=== PATIENT | female | born 1965 | race Caucasian/White ===

== ENCOUNTER → 2024-03-29 15:36 | Outpatient (REF) | payer OTHER, SELFPAY | LOC: RAD 15:36 | PROVIDERS: ATTENDING PHYSICIAN Internal Medicine Endocrinology, Diabetes & Metabolism; FAMILY PHYSICIAN Internal Medicine | DX: Z85.850 Personal history of malignant neoplasm of thyroid (principal) | CPT/HCPCS: 76536 ==

== ENCOUNTER → 2024-08-06 11:44 | Outpatient (REF) | payer OTHER, SELFPAY | LOC: HWRAD 11:44 | PROVIDERS: ATTENDING PHYSICIAN Internal Medicine | DX: Z91.81 History of falling (principal) | CPT/HCPCS: 72050; 73660 ==

== ENCOUNTER 2024-09-14 20:07 | Emergency (ER) | payer OTHER, SELFPAY ==
[2024-09-14] VITALS (8 sets, daily range): BP systolic 101–125; BP diastolic 59–74; BMI 24.4
--- NOTE | 2024-09-14 20:29 | ED.GENMED ---
History of Present Illness
<Kelly Oro PA-C - Last Filed: 09/14/24 22:36>
General
Chief Complaint: Heart Rate Problem
Source: patient
Time Seen by Provider: 09/14/24 20:20
History of Present Illness
History of Present Illness:
59yoF with a history of hypothyroidism and remote history of breast cancer currently in remission on anastrozole presenting with her for evaluation of palpitations. Patient was sitting down approximately 2 hours ago when she started to feel
like her heart was racing. She checked her pulse which was fast and irregular. Her Apple Watch indicated that her heart rate was in the 140-150s. She reports a tightness sensation in the back of her neck. She also feels lightheaded but denies
any syncope. She went to the bathroom prior to arrival and started to feel like her bilateral arms were heavy. Patient has a prior history of tachycardia when she was undergoing chemotherapy. She was temporarily on a beta-zay. She denies any
prior history of atrial fibrillation. No alcohol or caffeine use today.
Past History
<Kelly Oro PA-C - Last Filed: 09/14/24 22:36>
Past History
ED Past Medical History: Cancer (Breast)
ED Past Surgical History: Other (Partial thyroidectomy, B/L mastectomy)
Social History
Tobacco: Non-smoker
Alcohol: None
Drug: None
Personal:
Living: with family
Employment: Employed
Family History
Family History: Other (Noncontributory )
Phy Exam
<Kelly Oro PA-C - Last Filed: 09/14/24 22:36>
General Physical Exam
General Presentation: well appearing
General age: appears stated age
General Skin: warm and dry
General Habitus: normal
General Mental: alert
ENT Exam
ENT Exam: normocephalic
Cardiovascular Exam
Cardiovascular Exam: normal peripheral pulses (2+ radial pulses), irregularly irregular and tachycardia
Pulmonary Exam
Pulmonary Exam: lungs clear, no respiratory distress, no crackles and no wheezing
Neurological Exam
Neurological Exam: alert
[place]bs Coma Scale
Eye Opening: Spontaneous
Verbal Response: Oriented
Motor Response: Obeys Commands
GCS Total Score: 15
Skin Exam
Skin Exam: normal color and warm/dry
Psychiatric Exam
Psychiatric Exam: normal mood/affect
<Chayo Pena DO - Last Filed: 09/14/24 22:12>
Grubbs Coma Scale
GCS Total Score: 15
Course
<Kelly Oro PA-C - Last Filed: 09/14/24 22:36>
Orders/Labs/Results
Orders:
Orders
09/14/24 20:08
ECG [Electrocardiogram (*1)] Urgent
Reason for Study: Tachycardia
EKG- Treatment ONCE
09/14/24 20:28
0.9% Sodium Chloride 1000 ml [Nss] 1,000 ml IV BOLUS
Diltiazem HCl [Cardizem] 10 mg IV NOW STA
09/14/24 20:34
Complete Blood Count/With Diff Urgent
Comprehensive Metabolic Panel Urgent
Magnesium Urgent
TSH Reflex To Free T4 Urgent
Troponin I Urgent
09/14/24 21:00
Diltiazem 125 mg/125 ml Nss [Cardizem] 125 mg in 125 ml IV PER PROTOCOL
Initial dose in mg/hr, then titrate:: 2.5
Titrate to keep:: Heart rate 80-100 bpm
Titrate by mg/hr:: 5 mg/hr
Frequency of titrations (minutes):: 15
Maximum dose in mg/hr:: 15
09/14/24 21:01
Electrocardiogram (*1) Urgent
Reason for Study: Palpitations
EKG- Treatment ONCE
09/14/24 22:01
Electrocardiogram (*1) Urgent
Reason for Study: Palpitations
EKG- Treatment ONCE
Abnormal Lab Results
09/14/24
20:34
MPV 11.2 H fL
(7.4-10.4)
Absolute Monos (auto) 0.8 H 10^3/uL
(0.1-0.6)
BUN 19 H mg/dl
(7-17)
Glucose 110 H mg/dl
(70-99)
AST 62 H U/L
(14-36)
ALT 42 H U/L
(0-35)
09/14/24 20:34
09/14/24 20:34
Vital Signs
Initial and Last Documented VS:
Initial Vital Signs
Temp Pulse Resp BP Pulse Ox
97.8 F 148 26 124/65 98
09/14/24 20:11 09/14/24 20:11 09/14/24 20:11 09/14/24 20:11 09/14/24 20:11
Last Documented Vital Signs
Temp Pulse Resp BP Pulse Ox
97.8 F 74 13 107/72 99
09/14/24 20:11 09/14/24 22:00 09/14/24 22:00 09/14/24 22:00 09/14/24 22:00
<Chayo Pena, DO - Last Filed: 09/14/24 22:12>
Orders/Labs/Results
Orders:
Orders
09/14/24 20:08
ECG [Electrocardiogram (*1)] Urgent
Reason for Study: Tachycardia
EKG- Treatment ONCE
09/14/24 20:28
0.9% Sodium Chloride 1000 ml [Nss] 1,000 ml IV BOLUS
Diltiazem HCl [Cardizem] 10 mg IV NOW STA
09/14/24 20:34
Complete Blood Count/With Diff Urgent
Comprehensive Metabolic Panel Urgent
Magnesium Urgent
TSH Reflex To Free T4 Urgent
Troponin I Urgent
09/14/24 21:00
Diltiazem 125 mg/125 ml Nss [Cardizem] 125 mg in 125 ml IV PER PROTOCOL
Initial dose in mg/hr, then titrate:: 2.5
Titrate to keep:: Heart rate 80-100 bpm
Titrate by mg/hr:: 5 mg/hr
Frequency of titrations (minutes):: 15
Maximum dose in mg/hr:: 15
09/14/24 21:01
Electrocardiogram (*1) Urgent
Reason for Study: Palpitations
EKG- Treatment ONCE
09/14/24 22:01
Electrocardiogram (*1) Urgent
Reason for Study: Palpitations
EKG- Treatment ONCE
Abnormal Lab Results
09/14/24
20:34
MPV 11.2 H fL
(7.4-10.4)
Absolute Monos (auto) 0.8 H 10^3/uL
(0.1-0.6)
BUN 19 H mg/dl
(7-17)
Glucose 110 H mg/dl
(70-99)
AST 62 H U/L
(14-36)
ALT 42 H U/L
(0-35)
09/14/24 20:34
09/14/24 20:34
Vital Signs
Initial and Last Documented VS:
Initial Vital Signs
Temp Pulse Resp BP Pulse Ox
97.8 F 148 26 124/65 98
09/14/24 20:11 09/14/24 20:11 09/14/24 20:11 09/14/24 20:11 09/14/24 20:11
Last Documented Vital Signs
Temp Pulse Resp BP Pulse Ox
97.8 F 74 13 107/72 99
09/14/24 20:11 09/14/24 22:00 09/14/24 22:00 09/14/24 22:00 09/14/24 22:00
<Kelly Oro PA-C - Last Filed: 09/14/24 22:36>
MDM/Problems Addressed
Differential Diagnosis Includes:
59yoF here with palpitations x 2 hours. Associated with lightheadedness, tightness in the back of the neck, and arm heaviness. Heart rate 148 in triage. BP 124/65. She is appears uncomfortable but is non-toxic. Differential diagnosis includes but is
not limited to: atrial fibrillation, SVT, electrolyte abnormality, thyroid dysfunction, ACS
Initial ED plan: EKG obtained in triage shows afib with RVR with nonspecific ST/T wave changes that are likely rate related. No prior history of afib. Check cardiac labs, TSH, and magnesium. 10mg Cardizem and fluid bolus ordered.
<Kelly Oro PA-C - Last Filed: 09/14/24 22:36>
*EKG
Interpreted by ED Provider?: Yes
EKG Intrepretation Date: 09/14/24
Heart Rate: 141
Rate: tachycardiac
Rhythm: a-fib
[place]: normal axis
Interval: normal interval
QRS Pattern: normal QRS
Ischemia: non-specific ST changes
*Critical Care Note
Total Time (30-74mins, 75-104mins- exclusive of procedures): 35
<Kelly Oro PA-C - Last Filed: 09/14/24 22:36>
Update Note
Update Note:
Labs overall unremarkable including normal electrolytes and TSH. Troponin WNL. Patient was initiated on a Cardizem gtt and was on the infusion for about an hour when she converted to NSR. Repeat EKG confirms NSR with a HR of 72. No ectopy or
ischemic changes noted. Symptoms have completely resolved on reassessment. She is stable for discharge. [id number] score is 1 for gender. No indication for anticoagulation at this time. Advised close f/u with cardiology. Strict ED return precautions
discussed. She expressed understanding and was discharged in stable condition.
ED Attending Note
<Kelly Oro PA-C - Last Filed: 09/14/24 22:36>
-
Portions of this chart may have been created with voice recognition software.� Occasional wrong word or��sound alike� substitutions may have occurred due to the inherent limitations of voice recognition software.
<Chayo Pena DO - Last Filed: 09/14/24 22:12>
ED Attending Note
Patient seen and examined by attending physician: Yes
I performed a history and physical exam of patient and discussed management with resident, I reviewed resident's note and agree with documented findings and plan of care.: Yes
ED Attending Note:
This is a 59-year-old woman with prior history of breast cancer, Hypothyroidism who presents with sudden onset of palpitations that began around 6:30 PM associated with mild lightheadedness but no chest pain, no shortness of breath. No history of
similar episodes in the past. She does have remote history of palpitations which occurred during chemotherapy during breast cancer treatment. Had been on brief course of beta-zay at that time.
Initial EKG shows atrial fibrillation with RVR.
59-year-old woman appears her stated age, bright and alert, pleasant, appears in no acute distress.
Heart: Irregularly irregular at a rate of 100-110.
Respirations are easy and nonlabored.
Skin is warm and dry, normal color. Well-perfused.
A-fib ventricular response has improved with IV Cardizem.
BP mildly soft with IV Cardizem but she reports complete resolution of palpitations as well as lightheadedness.
Labs are unremarkable including normal TSH.
We had considered electrical cardioversion but patient has spontaneously converted to normal sinus rhythm.
Repeat EKG shows normal sinus rhythm, normal axis, normal intervals, no acute ST-T wave abnormalities.
[id number] score of 1. No indication for anticoagulation.
Will discharge to home with referral to cardiology for follow-up.
Discharge Plan
Departure
Patient Disposition: Home (Routine Discharge)
Date of Disposition: 09/14/24
Time of Disposition: 22:07
Patient with high blood pressure during this ER visit?: No
Discharge Problem:
Atrial fibrillation with rapid ventricular response
Instructions: Atrial Fibrillation (DC)
Prescriptions:
No Action
multivitamin with folic acid [Tab-A-Dionicio] 1 TABLET tablet
1 tab PO DAILY
Referrals:
Magaly Bryan DO [Family Provider] -
Maicol Pyle MD [Active] -
Activity Restrictions/Additional Instructions:
Please call on Monday morning to schedule a follow-up with cardiology. Return to the ER with any recurrent episodes or worsening symptoms.
Interventions
Interventions:
*Risk Screen - Suicide Last Done: 09/14/24 20:11
*General Assessment Last Done: 09/14/24 20:25
*Neglect/Abuse Screening Last Done: 09/14/24 20:11
ED- Fall Risk Assessment Last Done: 09/14/24 21:17
*ED COVID-19 Vaccine History Last Done: 09/14/24 20:25
*Nursing Disposition Last Done: 09/14/24 22:19
ED- Cardiac Assessment Last Done: 09/14/24 20:24
ED- Pulmonary Assessment Last Done: 09/14/24 20:25
Discharge Date and Time
Discharge Date/Time: 09/14/24 22:21
Print Language: AMHARIC
[2024-09-14] MEDS: NSS 1000 IV (20:36)
[2024-09-14] MEDS: CARDIZEM 10 MG IV (20:45)
[2024-09-14 20:51] LABS: % Basophils 0.8 % (0-2); % Eosinophils 2.8 % (0-6); % Immature Granulocytes 0.4 % (0-0.5); % Lymphocytes 32.7 % (20.5-51.1); % Monocytes 7.6 % (1.7-9.3); % Neutrophils 55.7 % (42.2-75.2); Absolute Basophils 0.1 10^3/uL (0-0.2); Absolute Eosinophils 0.3 10^3/uL (0-0.7); Absolute Lymphocytes 3.2 10^3/uL (1.2-3.4); Absolute Monocytes 0.8 10^3/uL (0.1-0.6); Absolute Neutrophils 5.5 10^3/uL (1.4-6.5); Hematocrit 41.8 % (37.0-47.0); Hemoglobin 14.9 g/dL (12.0-16.0); Mean Corp Hgb Conc. 35.6 g/dL (33.0-37.0); Mean Corpuscular Hgb 30.3 pg (27.0-31.0); Mean Corpuscular Volume 85.1 fL (81.0-99.0); Mean Platelet Volume 11.2 fL (7.4-10.4); Nucleated Red Blood Cells % 0 %; Platelet Count 172 10^3/uL (130-400); Red Blood Cell Count 4.91 10^6/uL (4.20-5.40); Red Cell Dist. Width 12.4 % (11.5-14.5); White Blood Cell Count 9.9 10^3/uL (4.8-10.8)
[2024-09-14] MEDS: CARDIZEM 125 IV (21:04)
[2024-09-14 21:06] LABS: ALT (SGPT) 42 U/L (0-35); AST (SGOT) 62 U/L (14-36); Albumin 4.8 g/dl (3.5-5.0); Alkaline Phosphatase 98 U/L (38-126); Blood Urea Nitrogen 19 mg/dl (7-17); Calcium 9.9 mg/dl (8.4-10.2); Carbon Dioxide 22 mmol/L (22-30); Chloride 106 mmol/L (98-107); Estimated Creatinine Clearance 72 ml/min; Glucose 110 mg/dl (70-99); Potassium 4.1 mmol/L (3.5-5.1); Sodium 141 mmol/L (135-145); Total Bilirubin 0.3 mg/dl (0.2-1.3); Total Protein 7.7 g/dl (6.3-8.2); eGFR > 60.00
[2024-09-14 21:18] LABS: Troponin I < 0.012 ng/ml
[2024-09-14 21:37] LABS: TSH Reflex To Free T4 4.59 uIU/ml (0.47-4.68)
== END 2024-09-14 22:21 | disposition home or self-care (01) ==
LOC: EMR 20:07
PROVIDERS: Physician Assistant; EMERGENCY PHYSICIAN Emergency Medicine; FAMILY PHYSICIAN Internal Medicine
DX: R00.2 Palpitations (principal); I48.91 Unspecified atrial fibrillation; E03.9 Hypothyroidism, unspecified; Z85.3 Personal history of malignant neoplasm of breast; Z90.13 Acquired absence of bilateral breasts and nipples
CPT/HCPCS: 99283; 96374; 96376; 96361; 80053; 83735; 84443; 84484; 85025; 93005

== ENCOUNTER → 2024-10-04 15:41 | Outpatient (REF) | payer OTHER, SELFPAY | LOC: HWRCS 15:41 | PROVIDERS: ATTENDING PHYSICIAN Student in an Organized Health Care Education/Training Program; FAMILY PHYSICIAN Internal Medicine | DX: I48.0 Paroxysmal atrial fibrillation (principal) | CPT/HCPCS: 93306 ==

== ENCOUNTER 2025-06-25 13:37 | Emergency (ER) | payer OTHER, SELFPAY ==
[2025-06-25 13:41] VITALS: BP 126/65
[2025-06-25 14:04] VITALS: BMI 22.6
[2025-06-25] MEDS: TORADOL 15 MG IV (14:08)
[2025-06-25] MEDS: NSS 1000 IV (14:09)
[2025-06-25 14:20] LABS: Hematocrit 44.1 % (37.0-47.0); Hemoglobin 15.0 g/dL (12.0-16.0); Mean Corp Hgb Conc. 34.0 g/dL (33.0-37.0); Mean Corpuscular Volume 87.3 fL (81.0-99.0); Nucleated Red Blood Cells % 0 %; Platelet Count 201 10^3/uL (130-400); Red Cell Dist. Width 12.9 % (11.5-14.5)
[2025-06-25 14:31] LABS: AST (SGOT) 28 U/L (14-36); Albumin 4.9 g/dl (3.5-5.0); Alkaline Phosphatase 83 U/L (38-126); Blood Urea Nitrogen 19 mg/dl (7-17); Calcium 10.3 mg/dl (8.4-10.2); Carbon Dioxide 19 mmol/L (22-30); Chloride 105 mmol/L (98-107); Estimated Creatinine Clearance 81 ml/min; Glucose 102 mg/dl (70-99); Potassium 3.6 mmol/L (3.5-5.1); Sodium 139 mmol/L (135-145); Total Protein 8.0 g/dl (6.3-8.2); eGFR > 60.00
[2025-06-25 14:41] LABS: ALT (SGPT) 33 U/L (0-35); Magnesium 2.0 mg/dl (1.6-2.3)
--- NOTE | 2025-06-25 14:46 | ED.GENMED ---
History of Present Illness
General
Chief Complaint: Flank Pain
Time Seen by Provider: 06/25/25 13:47
History of Present Illness
History of Present Illness:
60-year-old female presents to the emergency department for evaluation of hematuria and right flank pain. She notes she has had intermittent hematuria for the past 6 weeks but no pain until today. Denies nausea or vomiting. No prior abdominal
surgeries
Past History
Past History
ED Past Medical History: Cancer (Breast)
ED Past Surgical History: Other (Partial thyroidectomy, B/L mastectomy)
Social History
Tobacco: Non-smoker
Alcohol: None
Drug: None
Personal:
Living: with family
Employment: Employed
Family History
Family History: Other (Noncontributory )
Review of Systems
Review of Systems
Allergies reviewed?: Yes
All Other Systems: ROS reviewed and negative except as documented in HPI and ROS
Phy Exam
Physical Exam
Physical Exam:
GEN: Well appearing, NAD, WDWN
HEENT: Oral mucosa moist, no scleral icterus
Cardiac: Regular rate
Lung: No respiratory distress, no tachypnea
Abdomen: Soft, grossly nontender, no CVA tenderness
MSK: No gross deformity or injuries
Skin: Good color, no pallor or jaundice, no rashes
Neuro: AO x3, moves all extremities freely
Psych: Calm, cooperative
Course
Orders/Labs/Results
Orders:
Orders
06/25/25 14:02
Complete Blood Count/With Diff Urgent
Comprehensive Metabolic Panel Urgent
Creatine Phosphokinase Urgent
Comment: MAG & CPK ADDED ON BY FLOOR 2PM 06-25-25
Magnesium Urgent
Urinalysis Reflex To Culture Urgent
Date Specimen was Collected: 06/25/25
Time Specimen was Collected: 13:45
Urine Microscopic Reflex Cult Urgent
06/25/25 14:04
Add On- LAB Urgent
Tests Added?: magnesium, CPK
0.9% Sodium Chloride 1000 ml [Nss] 1,000 ml IV BOLUS
Ketorolac [Toradol] 15 mg IV NOW STA
06/25/25 14:05
CT Abd/Pel (IV only)-DH only Urgent
Comment:
Reason For Exam: RLQ/R flank pain
Abnormal Lab Results
06/25/25
14:02
Absolute Monos (auto) 0.7 H 10^3/uL
(0.1-0.6)
Carbon Dioxide 19 L mmol/L
(22-30)
BUN 19 H mg/dl
(7-17)
Glucose 102 H mg/dl
(70-99)
Calcium 10.3 H mg/dl
(8.4-10.2)
Ur Occult Blood Reflex 4+ A
(Negative)
Urine RBC 60-70 A /HPF
(0-2)
Urine Bacteria (Reflex) Few A
(Negative)
Urine Albumin (Reflex) 2+ A
(Neg - Trace)
06/25/25 14:02
06/25/25 14:02
Vital Signs
Initial and Last Documented VS:
Initial Vital Signs
Pulse Resp BP Pulse Ox
68 18 126/65 100
06/25/25 13:41 06/25/25 13:41 06/25/25 13:41 06/25/25 13:41
Last Documented Vital Signs
Temp Pulse Resp BP Pulse Ox
99.1 F 68 18 104/81 100
06/25/25 13:45 06/25/25 16:16 06/25/25 13:41 06/25/25 16:16 06/25/25 14:46
MDM/Problems Addressed
MDM/Problems Addressed:
Imaging reveals 4 mm mid ureteral stone, no evidence for UTI. Patient pain was well-controlled after 1 dose of ketorolac. Will treat supportively, discussed return parameters
*Pulse Oximetry
SaO2: 100
Oxygen Mode of Delivery: Room air
Patient hypoxic: no
*Critical Care Note
Total Time (30-74mins, 75-104mins- exclusive of procedures): Not Applicable
ED Attending Note
-
Portions of this chart may have been created with voice recognition software.� Occasional wrong word or��sound alike� substitutions may have occurred due to the inherent limitations of voice recognition software.
Discharge Plan
Departure
Patient Disposition: Home (Routine Discharge)
Date of Disposition: 06/25/25
Time of Disposition: 15:52
Patient with high blood pressure during this ER visit?: No
Discharge Problem:
Ureterolithiasis
Instructions: Kidney Stones (DC)
Prescriptions:
New
tamsulosin [Flomax] 0.4 mg capsule
0.4 mg PO HS Qty: 14 0RF
ketorolac 10 mg tablet
10 mg PO Q8H PRN (Reason: Pain) Qty: 15 0RF
Rx Instructions:
maximum total duration of 5 days from all oral, intranasal, or parenteral formulations
oxycodone-acetaminophen [Percocet] 5-325 mg tablet
1 - 2 tab PO Q6HPRN PRN (Reason: pain) Qty: 14 0RF
No Action
multivitamin with folic acid [Tab-A-Dionicio] 1 TABLET tablet
1 tab PO DAILY
Referrals:
Magaly Bryan DO [Family Provider, Family Practice]
Interventions
Interventions:
*Risk Screen - Suicide Last Done: 06/25/25 13:41
*General Assessment Last Done: 06/25/25 13:41
*Neglect/Abuse Screening Last Done: 06/25/25 13:41
*ED- Fall Risk Assessment Last Done: 06/25/25 14:04
*ED COVID-19 Vaccine History Last Done: 06/25/25 14:04
*Nursing Disposition Last Done: 06/25/25 16:16
WW-Veairh-Ixercsvxcq Assessment Last Done: 06/25/25 14:04
ED-Female Genitourinary Assessment Last Done: 06/25/25 14:04
Discharge Date and Time
Discharge Date/Time: 06/25/25 16:17
Print Language: LIBERIAN
[2025-06-25 15:00] LABS: Urine Character Clear (Clear)
[2025-06-25 15:28] LABS: Urine Squamous Cell 0-2 /LPF (Few)
[2025-06-25 15:29] LABS: Urine Red Blood Cell 60-70 /HPF (0-2)
[2025-06-25 16:16] VITALS: BP 104/81
== END 2025-06-25 16:17 | disposition home or self-care (01) ==
LOC: EMR 13:37
PROVIDERS: EMERGENCY PHYSICIAN Emergency Medicine; FAMILY PHYSICIAN Internal Medicine
DX: N20.1 Calculus of ureter (principal); Z85.3 Personal history of malignant neoplasm of breast; Z90.13 Acquired absence of bilateral breasts and nipples
CPT/HCPCS: 99284; 96374; 96361; 74177; 80053; 81003; 81015; 82550; 83735; 85025; Q9967

== ENCOUNTER → 2025-07-28 16:19 | Outpatient (REF) | payer OTHER, SELFPAY ==
[2025-07-28 17:51] LABS: Urine Character Clear (Clear)
== END ==
LOC: RAD 16:19
PROVIDERS: ATTENDING PHYSICIAN Urology; FAMILY PHYSICIAN Internal Medicine
DX: N39.0 Urinary tract infection, site not specified (principal); N20.0 Calculus of kidney
CPT/HCPCS: 74018; 81003; 87086

== ENCOUNTER 2025-08-15 06:10 | Day surgery (SDC) | payer OTHER, SELFPAY ==
[2025-08-15] VITALS (13 sets, daily range): BP systolic 68–138; BP diastolic 44–81; BMI 24.1
[2025-08-15] MEDS: NORMOSOL-R/PLASMALYTE-A 1000 IV (14:07)
[2025-08-15] MEDS: TRANSDERM-SCOP 1 PATCH TRANSDERM (14:23)
[2025-08-15] MEDS: TYLENOL 1000 MG PO (14:23)
== END 2025-08-15 17:53 | disposition home or self-care (01) ==
LOC: SDS 06:10
PROVIDERS: ATTENDING PHYSICIAN Urology
DX: N20.1 Calculus of ureter (principal)
CPT/HCPCS: 52356; 74018; 76000; 82365; C1894; C2617